=== PATIENT | female | born 1975 | race Hispanic/Latino ===

== ENCOUNTER → 2016-09-04 | Outpatient (REF) | payer BC | LOC: M LAB REF 12:23 | PROVIDERS: ATTEND Physician Assistant Medical | DX: J02.9 Acute pharyngitis, unspecified (principal) ==

== ENCOUNTER → 2016-11-04 | Outpatient (REF) | payer BC | LOC: M SFHCWAGY 14:40 | PROVIDERS: ATTEND Nurse Practitioner Family | DX: Z01.419 Encounter for gynecological examination (general) (routine) without abnormal findings (principal) ==

== ENCOUNTER → 2016-11-05 | Outpatient (CLI) | payer BC ==
--- NOTE | 2016-11-05 16:05 | REP ---
DIAGNOSTIC MAMMOGRAM LEFT BREAST: Diagnostic mammogram of the left breast performed and compared to prior exams of the same day. Spot compression views are obtained of the left axillary tail region in the MLO and axillary ML projections. These previously noted oval nodular opacity compresses out to normal fibroglandular tissue with no persistent nodule present. IMPRESSION: ACR 2 benign. No persistent nodule on spot compression views. Recommend followup mammogram in 1 year. BI-RADS/ACR category 2 mammogram. Benign finding(s). Routine annual screening mammography (for women over age 40). The patient letter being requested is M1. Signed by Reinier Saldaña MD 11/05/2016 05:15 P
== END ==
LOC: M RAD 14:26
PROVIDERS: ATTEND Nurse Practitioner Family
DX: Z12.31 Encounter for screening mammogram for malignant neoplasm of breast (principal)

== ENCOUNTER → 2016-11-05 | Outpatient (CLI) | payer BC ==
--- NOTE | 2016-11-05 09:43 | REP ---
BILATERAL MAMMOGRAM: Baseline study. Bilateral mammogram is performed in the MLO and CC projections. Moderate dense fibroglandular tissue is seen bilaterally. In the left axillary tail is an oval nodular opacity 1.5 x 0.8 cm. No other mass is seen. No clustered microcalcifications are seen. There are normal appearing bilateral axillary lymph nodes present. IMPRESSION: Asymmetric oval nodular opacity in the left axillary tail only seen on the MLO view. This measures 1.5 x 0.8 cm. Recommend spot compression views left breast in the MLO and axillary CC projections. Ultrasound may also be necessary. ACR 0 incomplete. BI-RADS/ACR category 0 mammogram, incomplete. Additional imaging and/or prior images are needed before a final assessment can be assigned. This mammogram was interpreted with the aid of an FDA-approved computer-aided detection system. A. Negative x-ray reports should not delay biopsy if a dominant or clinically suspicious mass is present. B. Four to eight percent of cancers are not identified by x-ray. C. Adenosis and dense breasts may obscure an underlying neoplasm. The patient states she/he had a clinical breast exam in October 2016. The patient letter being requested is M0.
== END ==
LOC: M WHC 07:55
PROVIDERS: ATTEND Nurse Practitioner Family
DX: Z12.31 Encounter for screening mammogram for malignant neoplasm of breast (principal)

== ENCOUNTER → 2017-04-29 | Outpatient (REF) | payer BC ==
[2017-04-29 13:18] LABS: MEAN CORPUSCULAR HEMOGLOBIN 28.3 pg (27.0-33.0); MEAN CORPUSCULAR HGB CONC 33.1 g/dl (32.0-36.5); MEAN CORPUSCULAR VOLUME 85.6 fl (80.0-96.0); PLATELET COUNT, AUTOMATED 232 10^3/uL (150-450); RED CELL DISTRIBUTION WIDTH 14.1 % (11.5-14.5); WHITE BLOOD COUNT 4.4 10^3/uL (4.0-10.0)
== END ==
LOC: M SFHCPLAZ 11:02
PROVIDERS: ATTEND Nurse Practitioner Family
DX: J30.9 Allergic rhinitis, unspecified (principal); E55.9 Vitamin D deficiency, unspecified

== ENCOUNTER → 2018-05-23 | Outpatient (REF) | payer BC ==
[2018-05-25 14:37] LABS: HPV HYBRID CAPTURE II Negative (Negative)
== END ==
LOC: M SFHCWAGY 14:03
PROVIDERS: ATTEND Nurse Practitioner Family
DX: Z12.4 Encounter for screening for malignant neoplasm of cervix (principal)
CPT/HCPCS: 87624; G0123

== ENCOUNTER → 2018-05-23 | Outpatient (CLI) | payer BC ==
--- NOTE | 2018-05-23 15:48 | REPMRS ---
Patient History The patient states she had a clinical breast exam in No known family history of cancer. Benign lumpectomy of both breasts. Digital Woman Screen Mammo: May 23, 2018 - Exam #: [id number] Bilateral CC and MLO view(s) were taken. Technologist: Mckayla Layne, Technologist Prior study comparison: November 05, 2016, left breast digital mammo diagnostic unilateral, performed at [facility]. November 05, 2016, digital woman screen mammo performed at [facility]. FINDINGS: The breast tissue is heterogeneously dense. This may lower the sensitivity of mammography. There is a well-circumscribed nodular density the posterior third of the upper outer quadrant of the right breast. This measures 11 x 13 mm and is relatively low attenuation. This may be a cyst. It merits further evaluation. There is a moderate amount of heterogeneously dense fibroglandular tissue which is fairly symmetric. There is no other interval development of dominant mass, architectural distortion, or clustered microcalcification typical of malignancy. There has been no other change in the appearance of the mammogram from the prior studies. 3-D tomosynthesis shows no additional findings. Assessment: BI-RADS/ACR category 0 mammogram, incomplete. BIRADS/ACR category zero mammogram, incomplete. Additional imaging and/or prior images needed. Recommendation Follow-up diagnostic mammogram of the right breast. Ultrasound of the right breast in 1 year. This patient's Lifetime Breast Cancer RIsk is estimated at 13.2 %. This mammogram was interpreted with the aid of an FDA-approved computer-aided dectection system. Electronically Signed By: Tyrone Zazueta MD 05/23/18 [id number]
== END ==
LOC: M WHC 13:36
PROVIDERS: ATTEND Nurse Practitioner Family
DX: Z12.31 Encounter for screening mammogram for malignant neoplasm of breast (principal); R92.2 Inconclusive mammogram

== ENCOUNTER → 2018-05-25 | Outpatient (CLI) | payer BC ==
--- NOTE | 2018-05-25 13:58 | REP ---
Digital diagnostic unilateral right breast mammography with CAD and focused right breast sonography: History: Screening mammography from May 23, 2018 is BIRADS category zero incomplete due to a relatively low density nodular opacity in the upper outer quadrant near the axilla. Diagnostic imaging was recommended. Comparison is also made with mammography from November 05, 2016. Mammographic findings: Magnified focal spot compression CC, MLO, and true MLO views of the right breast confirm the presence of a low density well circumscribed 12 mm nodule in the posterior aspect of the right upper outer quadrant. No other suspicious finding. Sonographic findings: Right breast is scanned from 9 o'clock 12 o'clock through the upper outer quadrant. Heterogeneous fibroglandular background echotexture is seen. At 10 o'clock laterally there is a hypoechoic lesion displaying enhanced through transmission. This measures 1.1 x 1.0 x 1.0 cm. It is 5.7 cm from the nipple. This is felt to correspond to the mammographic opacity. It is not a simple cyst. At 11 o'clock there is a 0.8 x 0.8 x 0.2 cm lymph node. No other significant sonographic finding. Impression: BIRADS category four suspicious right breast imaging. Hypoechoic solid appearing lesion corresponding to a new density mammographically. Ultrasound-guided needle biopsy is recommended with marker clip placement and post biopsy mammography. BI-RADS/ACR category 4 mammogram. Suspicious abnormality - biopsy should be considered. Usually requires biopsy. This mammogram was interpreted with the aid of an FDA-approved computer-aided detection system. The patient states she had a clinical breast exam in May 2018. The patient letter being requested is M4 Electronically Signed by Flaquito Zazueta MD 05/25/2018 05:45 P
== END ==
LOC: M RAD 09:59
PROVIDERS: ATTEND Nurse Practitioner Family
DX: R92.2 Inconclusive mammogram (principal); R59.9 Enlarged lymph nodes, unspecified

== ENCOUNTER → 2018-06-27 | Outpatient (CLI) | payer BC ==
[~2018-06-27] MED LIST: LIDOCAINE 1% MDV 20ML VIAL As Ordered ONE
--- NOTE | 2018-06-27 16:51 | REP ---
POST BIOPSY MAMMOGRAM RIGHT BREAST: Post-biopsy mammogram right breast was performed, following ultrasound guided biopsy of a nodule in the right axillary tail region. The metallic clip is seen at the site of the nodule in the right axillary tail region. Electronically Signed by Reinier Saldaña MD 06/27/2018 11:54 P
--- NOTE | 2018-07-01 15:25 | REP ---
ULTRASOUND GUIDED RIGHT BREAST BIOPSY The procedure was performed under the direct supervision of Dr. Saldaña The patient has a history of a hypoechoic solid appearing lesion corresponding to a new density mammographically seen on a previous ultrasound dated 05/1989. The risks and benefits of the procedure were explained to the patient and informed consent was obtained. The right breast nodule was localized using ultrasound guidance. The skin was prepped and draped in a sterile fashion. 1% Xylocaine was used as a local anesthetic. Using ultrasound guidance a 13-gauge suction assisted Mammotome needle was inserted and six core biopsy samples were obtained. A marker clip was placed at the biopsy site. The patient tolerated the procedure well and there were no immediate complications. After the appropriate amount of monitored convalescence the patient was discharged from the department. Reviewed by JUSTINA Pablo 06/30/2018 05:47 P Electronically Signed by Reinier Saldaña MD 07/01/2018 03:15 P
== END ==
LOC: M RADPRO 13:22
PROVIDERS: ATTEND Surgery
DX: D24.1 Benign neoplasm of right breast (principal); Z88.1 Allergy status to other antibiotic agents

== ENCOUNTER → 2019-02-17 | Outpatient (REF) | payer BC | LOC: M LAB REF 09:00 | PROVIDERS: ATTEND Physician Assistant Medical | DX: N39.0 Urinary tract infection, site not specified (principal) ==

== ENCOUNTER → 2019-07-19 | Outpatient (CLI) | payer BC ==
--- NOTE | 2019-07-19 16:56 | REPMRS ---
Patient History The patient states she had a clinical breast exam in July 2019. No known family history of cancer. Benign US guided breast biopsy of the right breast, June 27, 2018. Benign lumpectomy of both breasts. Digital Woman Screen Mammo: July 19, 2019 - Exam #: [id number] Bilateral CC and MLO view(s) were taken. Technologist: Elly Zamorano, Technologist Prior study comparison: June 27, 2018, right breast digital mammo diagnostic unilateral, performed at [facility]. May 25, 2018, right breast digital mammo diagnostic unilateral, performed at [facility]. November 05, 2016, digital woman screen mammo performed at [facility]. FINDINGS: The breast tissue is heterogeneously dense. This may lower the sensitivity of mammography. There is a moderate amount of heterogeneously dense fibroglandular tissue which is fairly symmetric. There is no interval development of dominant mass, architectural distortion, or grouped microcalcification typical of malignancy. There has been no change in the appearance of the mammogram from the prior studies. 3-D tomosynthesis shows no additional findings. Assessment: BI-RADS/ACR category 1 mammogram. Negative Mammogram. Recommendation Routine screening mammogram of both breasts in 1 year (for women over age 40). This patient's Lifetime Breast Cancer RIsk is estimated at 13.0 %. This mammogram was interpreted with the aid of an FDA-approved computer-aided dectection system. Electronically Signed By: Tyrone Zazueta MD 07/19/19 1105
== END ==
LOC: M WHC 15:13
PROVIDERS: ATTEND Nurse Practitioner Family
DX: Z12.31 Encounter for screening mammogram for malignant neoplasm of breast (principal)

== ENCOUNTER → 2019-07-25 | Outpatient (CLI) | payer BC ==
--- NOTE | 2019-07-26 08:54 | REP ---
Clinical: Enlarged uterus by physical examination. Technique: Transabdominal pelvic ultrasound followed by transvaginal examination for better evaluation of the endometrium and adnexa with color Doppler evaluation of the ovaries. Findings: Enlarged heterogeneous anteverted uterus includes multiple fibroids. Subserosal anterior fundal fibroid measures 5.8 x 6.2 x 4.2 cm. Left anterior fibroid measures 1.4 x 1.4 x 1.1 cm. Left posterior fibroid measures 2.3 x 2.1 x 1.9 cm. The endometrial complex is poorly evaluated due to surrounding myomas changes and a central 2.5 x 2.1 x 1.0 cm mass likely represents submucosal fibroid and less likely endometrial mass lesion. Ovaries are normal in vascularity without torsion. Right ovary measures 3.5 x 2.1 x 2.1 cm (RI 0.70) and includes complex 1.8 x 1.3 x 1.3 cm likely physiologic cyst. Left ovary measures 2.3 x 1.5 x 2.0 cm (RI 0.17). No pelvic fluid or adnexal mass lesion. Impression: Enlarged heterogeneous myomatous uterus as described above. Findings include suspected 2.5 cm submucosal fibroid less likely representing endometrial mass lesion. If necessary, consider pelvic MRI for further investigation.
== END ==
LOC: M WHC 08:20
PROVIDERS: ATTEND Nurse Practitioner Family
DX: N85.2 Hypertrophy of uterus (principal)

== ENCOUNTER → 2019-09-13 | Outpatient (REF) | payer BC ==
[2019-09-13 14:31] LABS: HEMATOCRIT 37.4 % (36.0-47.0); HEMOGLOBIN 11.9 g/dl (12.0-15.5); MEAN CORPUSCULAR HEMOGLOBIN 27.6 pg (27.0-33.0); MEAN CORPUSCULAR HGB CONC 31.8 g/dl (32.0-36.5); MEAN CORPUSCULAR VOLUME 86.8 fl (80.0-96.0); PLATELET COUNT, AUTOMATED 216 10^3/uL (150-450); RED BLOOD COUNT 4.31 10^6/uL (4.00-5.40); WHITE BLOOD COUNT 6.2 10^3/uL (4.0-10.0)
== END ==
LOC: M PLALAB 11:41
PROVIDERS: ATTEND Obstetrics & Gynecology
DX: N93.9 Abnormal uterine and vaginal bleeding, unspecified (principal)

== ENCOUNTER → 2019-10-04 | Outpatient (REF) | payer BC | LOC: M SFHCWAGY 17:17 | PROVIDERS: ATTEND Obstetrics & Gynecology | DX: D25.1 Intramural leiomyoma of uterus (principal) ==

== ENCOUNTER → 2020-01-24 | Outpatient (CLI) | payer BC ==
[~2020-01-24] MED LIST changes: +ALEV220T22 PO; +CETI10CA2 PO; +DOCU100C16 PO; +IBUP1TAB7 PO; -LIDOCAINE 1% MDV 20ML VIAL As Ordered ONE; +PERCOCET PO
== END ==
LOC: M LABSMTC 12:11
PROVIDERS: ATTEND Anesthesiology
DX: Z11.59 Encounter for screening for other viral diseases (principal)

== ENCOUNTER 2020-01-29 08:05 | Day surgery (SDC) | payer BC ==
[2020-01-29] VITALS (8 sets, daily range): BP systolic 106–144; BP diastolic 61–75
[~2020-01-29] VITALS: Ht 157.5 cm; Wt 61.7 kg
[~2020-01-29 08:05] MED LIST changes: -DOCU100C16 PO; -IBUP1TAB7 PO; +LR 1,000 ML IV ONE; -PERCOCET PO; +ceFAZolin SOD 2 GM in IV 1 EA IV ONE
[2020-01-29] MEDS ORDERED: fentaNYL 250 MCG/5 ML INJECTION (J3010) As Ordered ONE (08:15)
[2020-01-29] MEDS ORDERED: propofoL 200 MG/20 ML VIAL As Ordered ONE (08:15)
[2020-01-29] MEDS ORDERED: dexameTHASONE 4 MG/ML 1ML VIAL (J1100 PER 1MG) As Ordered ONE (08:15)
[2020-01-29] MEDS ORDERED: ROCURONIUM BROMIDE 50 MG/5 ML VIAL As Ordered ONE (08:15)
[2020-01-29] MEDS ORDERED: MIDAZOLAM INJ 2MG/2ML VIAL (J2250 PER 1MG) As Ordered ONE (08:15)
[2020-01-29] MEDS ORDERED: ONDANSETRON 4MG/2ML VIAL As Ordered ONE (08:15)
[2020-01-29] MEDS ORDERED: ACETAMINOPHEN 1000MG 100ML IV BTL (OFIRMEV) (J0131 PER 10MG) As Ordered ONE (08:15)
[2020-01-29] MEDS ORDERED: KETOROLAC 60MG 2ML VIAL As Ordered ONE (08:16)
[2020-01-29 08:47] LABS: HEMATOCRIT 36.2 % (36.0-47.0); HEMOGLOBIN 11.3 g/dl (12.0-15.5); MEAN CORPUSCULAR HEMOGLOBIN 26.6 pg (27.0-33.0); MEAN CORPUSCULAR HGB CONC 31.2 g/dl (32.0-36.5); MEAN CORPUSCULAR VOLUME 85.2 fl (80.0-96.0); PLATELET COUNT, AUTOMATED 244 10^3/uL (150-450); RED BLOOD COUNT 4.25 10^6/uL (4.00-5.40); WHITE BLOOD COUNT 4.1 10^3/uL (4.0-10.0)
[2020-01-29 09:28] LABS: HCG, SERUM QUALITATIVE NEGATIVE (NEGATIVE)
[2020-01-29] MEDS ORDERED: BUPIVACAINE HCL 0.25% 30ML VIAL As Ordered ONE (09:43)
[2020-01-29] MEDS ORDERED: METHYLENE BLUE 0.5% (5MG/ML) 10 ML AMP (PROVAYBLUE) As Ordered ONE (09:43)
[2020-01-29] MEDS ORDERED: SUGAMMADEX SODIUM 500 MG/5 ML VIAL (BRIDION) As Ordered ONE (10:27)
[2020-01-29] MEDS ORDERED: GLYCOPYRROLATE INJ 0.2 MG/ML 2 ML VIAL As Ordered ONE (10:53)
[2020-01-29] MEDS ORDERED: METOCLOPRAMIDE INJ 10MG/2ML VIAL (J2765 PER 1) As Ordered ONE (11:35)
[2020-01-29] MEDS ORDERED: ONDANSETRON 4MG/2ML VIAL IV PRN ×2 (13:00)
[2020-01-29] MEDS ORDERED: LR 1,000 ML IV SCH ×2 (13:00)
[2020-01-29] MEDS ORDERED: KETOROLAC 30 MG/ML 1ML VIAL IV PRN (13:00)
[2020-01-29] MEDS ORDERED: oxyCODONE 5MG TAB PO PRN (13:00)
[2020-01-29] MEDS ORDERED: fentaNYL 100 MCG/2 ML INJECTION (J3010) IV PRN (13:00)
[2020-01-29] MEDS ORDERED: MORPHINE 4 MG/ML 1ML VIAL/SYRINGE (J2270) IV PRN (13:00)
[2020-01-29] MEDS ORDERED: PERCOCET 5MG/325MG TAB PO PRN ×2 (13:00)
[2020-01-29] MEDS ORDERED: PROMETHAZINE INJ 25 MG/ML VIAL (J2550) IV PRN (13:00)
--- NOTE | 2020-01-29 13:59 | ROOPDOC ---
[facility] Report Of Operation Report of Operation DATE OF PROCEDURE: 01/29/2020 PREPROCEDURE DIAGNOSES: Symptomatic uterine leiomyomas . Abnormal uterine bleeding, chronic pelvic pain. POSTPROCEDURE DIAGNOSES: Same. +endometriosis/posterior cul de sac. PROCEDURE: Robotic-assisted total laparoscopic hysterectomy, bilateral salpingectomy, cystoscopy SURGEON: Cesia Nagel D.O. FACOG INSTALLATION AND SERVICE TECHNICIAN: Danyell Briseno ANESTHESIA: General endotracheal. ESTIMATED BLOOD LOSS: Approximately 150 mL. FLUIDS REPLACED: 1300 mL LR URINE OUTPUT: 425 mL COMPLICATIONS: None. FINDINGS: Normal-appearing ovaries bilaterally. Uterus was approximately 13 centimeters in greatest dimension. Weight of specimen 338 g. Evidence of endometriosis through retrograde menstrual flow in the posterior cul-de-sac. Cystoscopy: Bilateral ureteral orifice efflux, no bladder injury/suture material. PREOPERATIVE ANTIBIOTIC PROPHYLAXIS: Ancef 2 g IV 1. SPECIMEN(S): Uterus w/ cervix, bilateral fallopian tubes DESCRIPTION OF PROCEDURE: The patient was counseled, consented on the respective benefits, indications, alternatives of procedure. Informed consent was obtained. She was taken to the operating room with an IV running. She was placed on the operating table in dorsal supine position. Gen. anesthesia was administered and the airway was secured without any difficulty. She was placed in the low lithotomy position. . She was prepared and draped in the normal sterile fashion. A time out was performed per protocol. A Field catheter was placed under sterile conditions. A sterile speculum was placed resulting in good visualization of the cervix. A single-tooth tenaculum was used to grasp the anterior lip cervix. The cervix was sequentially dilated with Trevor dilators. A V-Care uterine manipulator was placed without any difficulty. The single-tooth tenaculum was removed, as well as the speculum. A sterile glove switch was performed. Attention was turned to the abdomen. A 2mm incision was made in the umbilicus, and through this incision a Veress needle was inserted into the intraperitoneal cavity. Intraperitoneal placement was confirmed with ease of flow of normal saline, positive drop test, no return on aspiration, and an opening pressure of less than 10 mmHg upon initial insufflation. The abdomen was insufflated with 2 L of gas. The Veress needle was removed. A supraumbilical 8 mm incision was made. Through this incision, the robotic trochar/cannula was inserted into the intraperitoneal cavity under direct visualization. No incidental bleeding nor injury was noted. Patient was placed in 30 Trendelenburg. The right and left trocars/cannulas were placed on both the right and left side through 8 mm incisions, guided by laparoscopic visualization. No incidental bleeding nor injury was noted. The robot was docked in typical fashion. The instruments were inserted, guided by l aparoscopic visualization. My attention was turned to the robotic console. Using the vessel sealer device, the right and left fallopian tubes were amputated. The fallopian tubes were brought through the assist-port cannula without any difficulty. The right utero-ovarian ligament and right round ligament were sequentially clamped, coagulated and transected with the vessel sealer device. The vesicouterine peritoneum was dissected with the vessel sealer device to create the bladder flap, thus mobilizing the lower uterine segment and cervix off of the bladder. The right uterine vasculature was sequentially clamped, coagulated and t ransected above the colpotomy cup. The left utero-ovarian ligament and left round ligament were sequentially clamped, coagulated and transected with the vessel sealer device. The remainder of the bladder flap was dissected using the vessel sealer device and blunt dissection. The left uterine vasculature was sequentially clamped, coagulated and transected above the colpotomy cup. The outline of the entire V- care colpotomy cup was able to be delineated. Excellent blanching of the uterus was noted. A circumferential colpotomy was performed using the da Yung monopolar beatrice, following the contour of the cup. The amputated cervix and uterus were brought through the colpotomy into and out of the vagina, intact as one unit. The colpotomy was closed with the V-lock barbed suture in running fashion, thus creating the vaginal cuff. Excellent hemostasis was noted throughout the steps above. Jason was placed over the vaginal cuff to ensure hemostasis. The instruments were removed from the abdomen and the robot was un-docked. The gas was released from the abdomen and the patient was taken out of Trendelenburg. I re-scrubbed, and attention was turned to the pelvis. The Field catheter was removed. The cystoscope was placed transurethrally into the bladder and normal saline was instilled. No bladder injury/suture material was noted. IV methylene blue had been administered by anesthesia and bilateral UO efflux was confirmed. The fluid was drained out of the bladder through the cystoscope device, then the cystoscope was removed. The vagina was copiously irrigated. A sterile digital vaginal exam revealed no significant bleeding and an intact vaginal cuff. A sterile glove switch was performed. The da Yung cannulas were removed. The skin incisions were closed with 4-0 Monocryl in subcuticular fashion. Sponge, needle and instrument counts were correct per protocol. The patient tolerated the entire procedure very well. She was transferred to the PACU in good and stable condition. Cesia Nagel DO [facility] CESIA NAGEL DO Jan 29, 2020 13:59
[2020-01-29] MEDS ORDERED: PERCOCET PO (14:01)
[2020-01-29] MEDS ORDERED: DOCU100C16 PO (14:01)
[2020-01-29] MEDS ORDERED: IBUP1TAB7 PO (14:01)
[2020-01-29] MEDS: DOCUSATE SODIUM 100 MG CAP PO SCH (20:26)
[2020-01-30 02:00] VITALS: BP 112/67
[2020-01-30 06:00] VITALS: BP 111/64
[2020-01-30] MEDS: DOCUSATE SODIUM 100 MG CAP PO SCH (08:21)
[2020-01-30 10:00] VITALS: BP 110/60
== END 2020-01-30 10:38 | disposition home or self-care (01) ==
LOC: M SDC 08:05 → M MSPAV 14:03 → M SDC 01-30 10:38
PROVIDERS: ATTEND Obstetrics & Gynecology
DX: D25.0 Submucous leiomyoma of uterus (principal); D25.1 Intramural leiomyoma of uterus; D25.2 Subserosal leiomyoma of uterus; N93.9 Abnormal uterine and vaginal bleeding, unspecified; R10.2 Pelvic and perineal pain; N80.3 Endometriosis of pelvic peritoneum; R01.1 Cardiac murmur, unspecified
CPT/HCPCS: 36415; 58571; 84703; 85027; 86850; 86900; 86901; 88309; J0131; J0690; J1100; J1885; J2250; J2405; J2765; J3010; Q9968

== ENCOUNTER → 2020-02-14 | Outpatient (REF) | payer BC ==
[~2020-02-14] MED LIST changes: +DOCU100C16 PO; +IBUP1TAB7 PO; -LR 1,000 ML IV ONE; +PERCOCET PO; -ceFAZolin SOD 2 GM in IV 1 EA IV ONE
[2020-02-14 14:09] LABS: APPEARANCE, URINE HAZY (CLEAR); BACTERIA, URINE AUTO 1+ (NEGATIVE); BILIRUBIN, URINE AUTO NEGATIVE (NEGATIVE); BLOOD, URINE BLOOD 1+ (NEGATIVE); COLOR, URINE YELLOW (YELLOW); GLUCOSE, URINE (UA) AUTO NEGATIVE (NEGATIVE); KETONE, URINE AUTO NEGATIVE (NEGATIVE); LEUKOCYTE ESTERASE, URINE AUTO 2+ (NEGATIVE); NITRITE, URINE AUTO NEGATIVE (NEGATIVE); PROTEIN, URINE AUTO NEGATIVE (NEGATIVE); RBC, URINE AUTO 2 /HPF (0-3); SPECIFIC GRAVITY URINE AUTO 1.005 (1.002-1.035); SQUAMOUS EPITHELIAL CELL UR AU 6 /HPF (0-6); UROBILINOGEN, URINE AUTO 0.2 mg/dL (0.0-2.0); WBC, URINE AUTO 5 /HPF (0-3)
== END ==
LOC: M SFHCWAGY 13:10
PROVIDERS: ATTEND Obstetrics & Gynecology
DX: R30.0 Dysuria (principal)

== ENCOUNTER → 2020-05-30 | Outpatient (REF) | payer BC | LOC: M SFHCADAM 14:13 | PROVIDERS: ATTEND Family Medicine | DX: R39.15 Urgency of urination (principal) ==

== ENCOUNTER → 2020-05-31 | Outpatient (REF) | payer BC | LOC: M SFHCADAM 16:31 | PROVIDERS: ATTEND Family Medicine | DX: R39.15 Urgency of urination (principal) ==

== ENCOUNTER → 2020-09-03 | Outpatient (CLI) | payer BC ==
--- NOTE | 2020-09-03 10:20 | REP ---
INDICATION: N63.10/N63.20 RIGHT AND LEFT BREAST MASS. COMPARISON: Comparison mammography is reviewed dated July 19, 2019, June 27, 2018, May 25, 2018, May 23, 2018, November 05, 2016, and TECHNIQUE: Skin markers were affixed to the skin at the site of the palpable lumps bilaterally. Routine views of each breast were augmented by magnified focal spot compression views and true mL views. 3D tomography is carried out. Bilateral targeted breast sonography is performed. FINDINGS: Breast parenchyma is again noted to be heterogeneously dense in a pattern which may inhibit the sensitivity of mammography. The skin marker affixed to the skin at the site of the palpable lump on the right aligns with the previously biopsied benign fibroadenoma. However, this fibroadenoma is larger than it was on the July 19, 2019 study. Currently measures 19 mm in greatest diameter on MLO view, previously 15 mm. Its margins remain well circumscribed. The marker clip is seen in good position from prior biopsy. No other soft tissue mass is seen in the right breast. No microcalcification or architectural distortion is seen on the right. On the left the skin marker is affixed to the skin projecting in the upper outer quadrant. Heterogeneous fibroglandular elements are again noted unchanged from the November 05, 2016 prior mammography. No progressive change or new density is seen. The remainder of the left breast is unchanged on are unremarkable as well. The Volpara volumetric breast density pattern is C. Targeted bilateral sonography: Right breast imaging at site of the palpable lump demonstrates the previously biopsied fibroadenoma with clip adjacent. This is in the 10 o'clock position, 8 cm from the nipple. Its current dimensions are 2.2 x 1.4 x 1.8 cm by ultrasound. Previous sonographic dimensions on May 25, 2018 were 1.0 x 1.0 x 1.1 cm. Targeted ultrasound in the region of the left breast biopsy upper-outer quadrant shows heterogeneously echogenic fibroglandular tissue. There is an area of hyperechoic tissue at 1 o'clock in the left breast in the area of the lump. Within this hyperechoic tissue is a hypoechoic area. No acoustic shadowing is seen. This is nonspecific and measures 0.7 x 0.5 x 1.1 cm. 7 cm from the nipple. IMPRESSION: BI-RADS category 4 suspicious left breast sonographic findings. At site of the palpable lump there is a 1.1 cm hypoechoic area surrounded by hyperechoic tissue which is nonspecific. Ultrasound-guided needle biopsy is recommended.. The biopsy-proven fibroadenoma in the right upper outer quadrant at/axillary region appears to have enlarged somewhat by ultrasound and mammography. This [facility]'s [facility] lifetime breast cancer risk assessment score is 12.8%. This mammogram was interpreted with the aid of an FDA-approved computer-aided detection system. The patient states she had a clinical breast exam in August of 2020. The patient letter being requested is M4. RECOMMENDATION: Ultrasound-guided needle biopsy of the hypoechoic zone identified by ultrasound in the left breast. Marker clip placement and post clip placement mammography recommended.. <Electronically signed by Tyrone Zazueta > 09/03/20 1016
== END ==
LOC: M WHC 08:29
PROVIDERS: ATTEND Nurse Practitioner Women's Health
DX: N63.10 Unspecified lump in the right breast, unspecified quadrant (principal); N63.20 Unspecified lump in the left breast, unspecified quadrant
CPT/HCPCS: 76642; 77066; G0279

== ENCOUNTER → 2020-09-24 | Outpatient (CLI) | payer BC ==
[2020-09-24 10:44] VITALS: BP 108/74
--- NOTE | 2020-09-24 11:02 | REP ---
INDICATION: N63.20 LT BREAST MASS,POST US GUIDED BIOPSY. COMPARISON: 09/03/2020. TECHNIQUE: ML and CC views left breast following ultrasound-guided biopsy of a nodule in the posterior upper outer quadrant. FINDINGS: Biopsy clip noted at the site of the palpable lump. The nodule is not seen mammographically on the prior or current exam. IMPRESSION: Biopsy clip seen at the site of the ultrasound-guided biopsy. RECOMMENDATION: Clinical follow-up. <Electronically signed by Reinier Saldaña > 09/24/20 1052
--- NOTE | 2020-09-24 17:12 | REP ---
INDICATION: N63.20 LT BREAST MASS,US GUIDED BIOPSY. COMPARISON: None. TECHNIQUE: The procedure was performed under the direct supervision of Dr. Saldaña. The patient has a history of a 1.1 cm hypoechoic area surrounded by hyperechoic tissue in the 1 o'clock position of the left breast seen on a previous ultrasound dated 09/03/2020. The risks and benefits of the procedure were explained to the patient and informed consent was obtained. The left breast nodule was localized using ultrasound guidance. The skin was prepped and draped in a sterile fashion. 1% Xylocaine was used as a local anesthetic. Using ultrasound guidance a 14-gauge coaxial biopsy needle was inserted and6 core biopsy samples were obtained. A marker clip (HydroMARK shape 3) was placed at the biopsy site The patient tolerated the procedure well and there were no immediate complications. After the appropriate amount of monitored convalescence, the patient was discharged from the department. FINDINGS: None IMPRESSION: Ultrasound-guided left breast biopsy with marker clip placement. (HydroMARK shape 3) <Electronically signed by Arnel Sparks > 09/24/20 1436 <Electronically signed by Reinier Saldaña > 09/24/20 [id number]
== END ==
LOC: M WHCPRO 06:56
PROVIDERS: ATTEND Nurse Practitioner Women's Health
DX: N60.22 Fibroadenosis of left breast (principal); R92.8 Other abnormal and inconclusive findings on diagnostic imaging of breast; N63.20 Unspecified lump in the left breast, unspecified quadrant

== ENCOUNTER → 2020-11-28 | Outpatient (REF) | payer BC ==
[2020-11-28 17:38] LABS: APPEARANCE, URINE CLEAR (CLEAR); BACTERIA, URINE AUTO 1+ (NEGATIVE); BILIRUBIN, URINE AUTO NEGATIVE (NEGATIVE); BLOOD, URINE BLOOD NEGATIVE (NEGATIVE); COLOR, URINE COLORLESS (YELLOW); GLUCOSE, URINE (UA) AUTO NEGATIVE (NEGATIVE); KETONE, URINE AUTO NEGATIVE (NEGATIVE); LEUKOCYTE ESTERASE, URINE AUTO NEGATIVE (NEGATIVE); NITRITE, URINE AUTO NEGATIVE (NEGATIVE); PROTEIN, URINE AUTO NEGATIVE (NEGATIVE); RBC, URINE AUTO 0 /HPF (0-3); SPECIFIC GRAVITY URINE AUTO 1.002 (1.002-1.035); SQUAMOUS EPITHELIAL CELL UR AU 0 /HPF (0-6); UROBILINOGEN, URINE AUTO 0.2 mg/dL (0.0-2.0); WBC, URINE AUTO 0 /HPF (0-3)
== END ==
LOC: M SFHCADAM 15:25
PROVIDERS: ATTEND Family Medicine
DX: R82.90 Unspecified abnormal findings in urine (principal)

== ENCOUNTER → 2021-09-16 | Outpatient (CLI) | payer BC ==
[2021-09-16 11:00] LABS: BASO % 0.6 % (0.0-1.0); EOS # 0.1 10^3/uL (0.0-0.5); EOS % 2.5 % (0.0-3.0); HEMATOCRIT 42.3 % (36.0-47.0); HEMOGLOBIN 13.8 g/dl (12.0-15.5); LYMPH # 2.4 10^3/uL (1.5-5.0); LYMPH % 46.2 % (24.0-44.0); MEAN CORPUSCULAR HEMOGLOBIN 28.7 pg (27.0-33.0); MEAN CORPUSCULAR HGB CONC 32.6 g/dl (32.0-36.5); MEAN CORPUSCULAR VOLUME 87.9 fl (80.0-96.0); MONO # 0.4 10^3/uL (0.0-0.8); MONO % 6.8 % (2.0-8.0); NEUTROPHILS # 2.3 10^3/uL (1.5-8.5); NEUTROPHILS % 43.9 % (36.0-66.0); PLATELET COUNT, AUTOMATED 238 10^3/uL (150-450); RED BLOOD COUNT 4.81 10^6/uL (4.00-5.40); WHITE BLOOD COUNT 5.2 10^3/uL (4.0-10.0)
[2021-09-16 11:39] LABS: ALBUMIN 3.8 GM/DL (3.2-5.2); ALT/SGPT 36 U/L (12-78); BILIRUBIN,TOTAL 0.6 MG/DL (0.2-1.0); BLOOD UREA NITROGEN 9 MG/DL (7-18); CALCIUM LEVEL 9.8 MG/DL (8.5-10.1); CARBON DIOXIDE LEVEL 26 MEQ/L (21-32); CHLORIDE LEVEL 105 MEQ/L (98-107); CHOLESTEROL LEVEL 210 MG/DL (<200); CHOLESTEROL RISK RATIO 2.386 (<5); CREATININE FOR GFR 0.72 MG/DL (0.55-1.30); GLOMERULAR FILTRATION RATE > 60.0 (>58); GLUCOSE, FASTING 80 MG/DL (70-100); HDL CHOLESTEROL 88 MG/DL (>40); LDL CHOLESTEROL 109 MG/DL (<100); NON-HDL-C 122 MG/DL; POTASSIUM SERUM 4.1 MEQ/L (3.5-5.1); SODIUM LEVEL 140 MEQ/L (136-145); THYROID STIMULATING HORMONE 0.937 uIU/ML (0.358-3.740); TOTAL PROTEIN 7.3 GM/DL (6.4-8.2); TRIGLYCERIDES LEVEL 63 MG/DL (<150)
== END ==
LOC: M LAB 09:20
PROVIDERS: ATTEND Family Medicine
DX: Z00.00 Encounter for general adult medical examination without abnormal findings (principal)

== ENCOUNTER → 2021-11-13 | Outpatient (CLI) | payer BC | LOC: M WHC 07:21 | PROVIDERS: ATTEND Family Medicine | DX: Z12.31 Encounter for screening mammogram for malignant neoplasm of breast (principal) ==

== ENCOUNTER → 2022-10-07 | Outpatient (REF) | payer BC ==
[2022-10-07 15:03] LABS: BASO % 0.7 % (0.0-1.0); EOS # 0.4 10^3/uL (0.0-0.5); EOS % 9.2 % (0.0-3.0); HEMATOCRIT 41.7 % (36.0-47.0); HEMOGLOBIN 13.3 g/dl (12.0-15.5); LYMPH # 1.7 10^3/uL (1.5-5.0); LYMPH % 36.3 % (24.0-44.0); MEAN CORPUSCULAR HGB CONC 31.9 g/dl (32.0-36.5); MEAN CORPUSCULAR VOLUME 90.8 fl (80.0-96.0); MONO # 0.3 10^3/uL (0.0-0.8); MONO % 7.5 % (2.0-8.0); NEUTROPHILS # 2.1 10^3/uL (1.5-8.5); NEUTROPHILS % 46.1 % (36.0-66.0); PLATELET COUNT, AUTOMATED 227 10^3/uL (150-450); RED BLOOD COUNT 4.59 10^6/uL (4.00-5.40); WHITE BLOOD COUNT 4.6 10^3/uL (4.0-10.0)
[2022-10-07 15:11] LABS: ALKALINE PHOSPHATASE 48 U/L (46-116); ALT/SGPT 22 U/L (7.0-40); AST/SGOT 19 U/L (<34); BILIRUBIN,TOTAL 0.8 MG/DL (0.3-1.2); BLOOD UREA NITROGEN 17 MG/DL (9-23); CALCIUM LEVEL 9.3 MG/DL (8.5-10.1); CARBON DIOXIDE LEVEL 27 MMOL/L (20-31); CHLORIDE LEVEL 108 MMOL/L (98-107); CHOLESTEROL LEVEL 212 MG/DL (<200); CHOLESTEROL RISK RATIO 2.46 (<5); CREATININE FOR GFR 0.77 MG/DL (0.55-1.30); GLOMERULAR FILTRATION RATE > 60.0 (>58); GLUCOSE, FASTING 80 MG/DL (60-100); HDL CHOLESTEROL 86.1 MG/DL (>40); LDL CHOLESTEROL 111.1 MG/DL (<100); NON-HDL-C 125.9 MG/DL; POTASSIUM SERUM 4.2 MMOL/L (3.5-5.1); SODIUM LEVEL 137 MMOL/L (136-145); TOTAL PROTEIN 6.8 G/DL (5.7-8.2); TRIGLYCERIDES LEVEL 74 MG/DL (<150)
[2022-10-07 15:12] LABS: THYROID STIMULATING HORMONE 1.152 uIU/ML (0.55-4.78)
== END ==
LOC: M SFHCADAM 07:38
PROVIDERS: ATTEND Family Medicine
DX: Z00.00 Encounter for general adult medical examination without abnormal findings (principal)

== ENCOUNTER → 2022-12-15 | Outpatient (REF) | payer BC ==
[2022-12-15 13:27] LABS: BLOOD UREA NITROGEN 8 MG/DL (9-23); CALCIUM LEVEL 9.7 MG/DL (8.5-10.1); CARBON DIOXIDE LEVEL 27 MMOL/L (20-31); CHLORIDE LEVEL 103 MMOL/L (98-107); CREATININE FOR GFR 0.66 MG/DL (0.55-1.30); GLOMERULAR FILTRATION RATE > 60.0 (>58); GLUCOSE, FASTING 83 MG/DL (60-100); POTASSIUM SERUM 4.8 MMOL/L (3.5-5.1); SODIUM LEVEL 140 MMOL/L (136-145)
[2022-12-15 13:28] LABS: BASO % 0.6 % (0.0-1.0); EOS # 0.2 10^3/uL (0.0-0.5); EOS % 3.1 % (0.0-3.0); HEMATOCRIT 43.8 % (36.0-47.0); HEMOGLOBIN 13.8 g/dl (12.0-15.5); LYMPH # 1.4 10^3/uL (1.5-5.0); LYMPH % 29.6 % (24.0-44.0); MEAN CORPUSCULAR HEMOGLOBIN 28.7 pg (27.0-33.0); MEAN CORPUSCULAR HGB CONC 31.5 g/dl (32.0-36.5); MEAN CORPUSCULAR VOLUME 91.1 fl (80.0-96.0); MONO # 0.4 10^3/uL (0.0-0.8); MONO % 8.6 % (2.0-8.0); NEUTROPHILS # 2.8 10^3/uL (1.5-8.5); NEUTROPHILS % 57.9 % (36.0-66.0); PLATELET COUNT, AUTOMATED 233 10^3/uL (150-450); RED BLOOD COUNT 4.81 10^6/uL (4.00-5.40); WHITE BLOOD COUNT 4.8 10^3/uL (4.0-10.0)
[2022-12-15 14:16] LABS: ERYTHROCYTE SEDIMENTATION RATE 21 mm/hr (0-20)
[2022-12-16 23:10] LABS: ANA (HEP2) Positive (.)
== END ==
LOC: M SFHCADAM 09:57
PROVIDERS: ATTEND Physician Assistant Medical
DX: M79.89 Other specified soft tissue disorders (principal)

== ENCOUNTER → 2023-08-09 | Outpatient (REF) | payer BC | LOC: M SFHCADAM 14:09 | PROVIDERS: ATTEND Physician Assistant | DX: Z86.19 Personal history of other infectious and parasitic diseases (principal) ==

== ENCOUNTER → 2023-08-09 | Outpatient (CLI) | payer BC | LOC: M ADAMS 14:03 | PROVIDERS: ATTEND Physician Assistant | DX: M77.52 Other enthesopathy of left foot and ankle (principal) ==